=== PATIENT | female | born 1945 | race Caucasian/White ===

== ENCOUNTER → 2024-09-26 10:22 | Outpatient (BNVA) | payer MEDICARE, BC, SELFPAY | PROVIDERS: PCP Family Medicine; Visit Provider Family Medicine | DX: E78.00 Pure hypercholesterolemia, unspecified (principal); E53.8 Deficiency of other specified B group vitamins; M15.9 Polyosteoarthritis, unspecified; G47.00 Insomnia, unspecified | CPT/HCPCS: 80053; 80061; 82607; 84443; 85025 ==